=== PATIENT | male | born 1940 | race Caucasian/White ===

== ENCOUNTER → 2019-02-17 | Outpatient (CLI) | payer MEDICARE, OTHER ==
--- NOTE | 2019-02-17 13:32 | Diagnostic Imaging Report ---
INDICATION: Chronic low back pain. TIME OF EXAM: 01:15 p.m. FINDINGS: Three views of the lumbar spine were obtained. Curvature and alignment is normal. Vertebral body heights are maintained. No acute compression fracture is detected. There is multilevel degenerative disc disease with variable disc space narrowing and marginal spurring. Abdominal aorta is heavily calcified. IMPRESSION: Lumbar spondylosis. No acute bony abnormality is detected. Dictated by: Dictated on workstation # [id number]
== END ==
LOC: RAD FS 13:09
PROVIDERS: ATTEND Chiropractor
DX: M47.816 Spondylosis without myelopathy or radiculopathy, lumbar region (principal); E78.00 Pure hypercholesterolemia, unspecified; Z86.79 Personal history of other diseases of the circulatory system
CPT/HCPCS: 72100

== ENCOUNTER → 2019-09-22 | Outpatient (CLI) | payer MEDICARE, OTHER ==
--- NOTE | 2019-09-22 15:49 | Diagnostic Imaging Report ---
INDICATION: Difficulty urinating. TIME OF EXAM: 1:18 PM FINDINGS: There is moderate gaseous distention to the left colon. There is mild fecal material in the right colon. Small bowel is nondilated. No definite free air is seen on this supine radiograph. No pathologic calcifications are identified. Opaque cylinder-type device projects in the midline below the symphysis, perhaps a genitourinary device. IMPRESSION: Nonspecific bowel gas pattern. No acute feature is detected. Dictated by: Dictated on workstation # [id number]
== END ==
LOC: RAD FS 13:09
PROVIDERS: ATTEND Urology
DX: N20.0 Calculus of kidney (principal)
CPT/HCPCS: 74018

== ENCOUNTER → 2019-11-06 | Outpatient (CLI) | payer MEDICARE, OTHER ==
--- NOTE | 2019-11-06 10:14 | Diagnostic Imaging Report ---
INDICATION: Bronchitis. TECHNIQUE: Two view chest 10:10 AM CORRELATION STUDY: None FINDINGS: The heart size, mediastinal configuration and pulmonary vasculature are within normal limits. The lungs are clear with no consolidating infiltrate. There is no significant pleural effusion or pneumothorax. Visualized osseous structures are unremarkable. IMPRESSION: 1. Negative for acute abnormality of the chest. Dictated by: Dictated on workstation # [id number]
== END ==
LOC: RAD FS 10:05
PROVIDERS: ATTEND Nurse Practitioner Family
DX: J40 Bronchitis, not specified as acute or chronic (principal)
CPT/HCPCS: 71046

== ENCOUNTER → 2021-09-15 | Outpatient (CLI) | payer MEDICARE, OTHER ==
--- NOTE | 2021-09-15 11:06 | Diagnostic Imaging Report ---
INDICATION: Left rib pain. TIME OF EXAM: 10:37 AM Multiple views left-sided ribs were obtained. There is some irregularity involving the anterior aspect of the left 6th rib. Nondisplaced fracture cannot be entirely excluded. No other rib fractures are identified. There is no pulmonary contusion. There is some atelectasis in left lung base. No pneumothorax is seen. IMPRESSION: There is a questionable age-indeterminate fracture of the anterior left 6th rib. No other significant abnormality is detected. Dictated by: Dictated on workstation # [id number]
== END ==
LOC: RAD FS 10:19
PROVIDERS: ATTEND Nurse Practitioner Family
DX: R07.81 Pleurodynia (principal)
CPT/HCPCS: 71100